=== PATIENT | female | born 1945 | race Caucasian/White ===

== ENCOUNTER → 2016-10-01 | Outpatient (CLI) | payer MEDICARE, BC ==
[~2016-10-01] MED LIST: CELEXA 20MG20 MG/TA1 PO; HYDROCHLOROTH12.5 M1 PO; ONDANSETRON HYDR4 M1 PO; PEPCID 20MG TAB20 MG PO; PRINIVIL10 M1 PO; VERAPAMIL240 MG/TAB PO
[2016-10-01 17:25] VITALS: BP 134/50
== END ==
LOC: AMSURD 16:38
DX: R11.2 Nausea with vomiting, unspecified (principal); R53.81 Other malaise; R10.13 Epigastric pain
CPT/HCPCS: J2405; J7030

== ENCOUNTER → 2018-02-13 | Outpatient (CLI) | payer MEDICARE, BC ==
[~2018-02-13] VITALS: Ht 157.5 cm; Wt 84.1 kg
[~2018-02-13] MED LIST changes: +AMBIEN10 MG PO; +ASPIRIN E.C. 8181 MG PO
[2018-02-13 10:17] LABS: EOS # 0.2 (0.04-0.40); EOS % 3.3 % (1.0-5.0); HEMATOCRIT 41.1 % (37.0-47.0); HEMOGLOBIN 13.5 g/dL (12.5-16.0); LYMPH# 2.1 (1.50-4.00); MEAN CELL VOLUME 92 fl (78-100); MEAN CORPUSCULAR HEMOGLOBIN 30 pg (27-31); MEAN CORPUSCULAR HGB CONC 33 g/dL (33-37); MEAN PLATELET VOLUME 9.7 fl (7.4-10.4); MONO # 0.5 (0.20-0.80); NEU # 3.1 (1.40-6.50); PLATELET COUNT 268 K/mm3 (130-400); RED BLOOD COUNT 4.47 M/mm3 (4.10-5.30); RED CELL DISTRIBUTION WIDTH 13.7 % (11.5-14.5)
[2018-02-13 10:42] VITALS: BP 151/85
[2018-02-13 11:24] LABS: ERYTHROCYTE SEDIMENTATION RATE 25 mm/hr (0-30)
[2018-02-13 11:36] LABS: ALBUMIN 4.1 g/dL (3.5-5.0); CALCIUM 8.8 mg/dL (8.4-10.2); POTASSIUM 4.3 mmol/L (3.6-5.0); TOTAL BILIRUBIN 0.5 mg/dL (0.2-1.3); TOTAL PROTEIN 7.4 g/dL (6.3-8.2)
[2018-02-13 12:13] LABS: URINE APPEARANCE CLEAR; URINE BILIRUBIN NEGATIVE (NEGATIVE); URINE BLOOD NEGATIVE (NEGATIVE); URINE COLOR YELLOW; URINE GLUCOSE NEGATIVE (NEGATIVE); URINE KETONE NEGATIVE (NEGATIVE); URINE LEUKOCYTE ESTERASE NEGATIVE (NEGATIVE); URINE NITRATE NEGATIVE (NEGATIVE); URINE PROTEIN(semi-quant) NEGATIVE (NEGATIVE); URINE UROBILINOGEN NORMAL (NORMAL)
[2018-02-13 12:14] LABS: URINE MUCUS PRESENT (NOT PRESENT)
== END ==
LOC: AMSURD 09:47
PROVIDERS: Internal Medicine
DX: Z12.11 Encounter for screening for malignant neoplasm of colon (principal); I10 Essential (primary) hypertension; R73.02 Impaired glucose tolerance (oral); E78.2 Mixed hyperlipidemia; M85.80 Other specified disorders of bone density and structure, unspecified site

== ENCOUNTER → 2018-06-19 | Outpatient (CLI) | payer MEDICARE, BC ==
[2018-02-13 10:42] VITALS: BP 151/85
== END ==
LOC: RAD 16:36
DX: S62.515A Nondisplaced fracture of proximal phalanx of left thumb, initial encounter for closed fracture (principal); M25.742 Osteophyte, left hand

== ENCOUNTER → 2018-06-25 | Outpatient (CLI) | payer MEDICARE, BC ==
[2018-02-13 10:42] VITALS: BP 151/85
== END ==
LOC: VAS 16:44 → RAD 16:45
DX: I08.1 Rheumatic disorders of both mitral and tricuspid valves (principal)

== ENCOUNTER → 2018-06-26 | Outpatient (CLI) | payer MEDICARE, BC ==
[2018-02-13 10:42] VITALS: BP 151/85
== END ==
LOC: CARDLAB 07:28 → CARDREHAB 07:49 → CARDLAB 09:23
DX: R06.02 Shortness of breath (principal); Z86.79 Personal history of other diseases of the circulatory system; Z82.49 Family history of ischemic heart disease and other diseases of the circulatory system
CPT/HCPCS: A9500

== ENCOUNTER → 2018-07-10 | Outpatient (CLI) | payer MEDICARE, BC ==
[2018-02-13 10:42] VITALS: BP 151/85
== END ==
LOC: LAB 16:34
DX: R20.2 Paresthesia of skin (principal)

== ENCOUNTER 2018-08-21 10:00 | Outpatient (RCR) | payer OTHER ==
[2018-02-13 10:42] VITALS: BP 151/85
== END 2018-08-21 10:30 | disposition still patient (30) ==
LOC: OT 10:00
DX: S62.525D Nondisplaced fracture of distal phalanx of left thumb, subsequent encounter for fracture with routine healing (principal)

== ENCOUNTER → 2018-08-26 | Outpatient (CLI) | payer OTHER ==
[2018-02-13 10:42] VITALS: BP 151/85
== END ==
LOC: RAD 08:35
DX: S62.502D Fracture of unspecified phalanx of left thumb, subsequent encounter for fracture with routine healing (principal)

== ENCOUNTER → 2019-12-07 | Outpatient (CLI) | payer MEDICARE, BC ==
[2018-02-13 10:42] VITALS: BP 151/85
[2019-12-07 11:37] LABS: EOS # 0.4 (0.04-0.40); EOS % 7.5 % (1.0-5.0); HEMATOCRIT 40.4 % (37.0-47.0); HEMOGLOBIN 13.1 g/dL (12.5-16.0); MEAN CELL VOLUME 94 fl (78-100); MEAN CORPUSCULAR HEMOGLOBIN 30 pg (27-31); MEAN CORPUSCULAR HGB CONC 32 g/dL (33-37); MEAN PLATELET VOLUME 9.9 fl (7.4-10.4); MONO # 0.5 (0.20-0.80); NEU # 2.1 (1.40-6.50); PLATELET COUNT 251 K/mm3 (130-400); RED BLOOD COUNT 4.32 M/mm3 (4.10-5.30); RED CELL DISTRIBUTION WIDTH 13.4 % (11.5-14.5); WHITE BLOOD COUNT 5.1 K/mm3 (4.8-10.8)
[2019-12-07 11:41] LABS: POTASSIUM 4.3 mmol/L (3.5-5.1)
[2019-12-07 11:42] LABS: ALBUMIN 3.8 g/dL (3.4-4.8)
[2019-12-07 11:43] LABS: CALCIUM 8.7 mg/dL (8.3-10.5)
[2019-12-07 11:44] LABS: TOTAL PROTEIN 6.7 g/dL (6.2-8.1)
[2019-12-07 11:46] LABS: TOTAL BILIRUBIN 0.5 mg/dL (0.2-1.2)
[2019-12-07 12:56] LABS: URINE APPEARANCE CLEAR; URINE BILIRUBIN NEGATIVE (NEGATIVE); URINE BLOOD NEGATIVE (NEGATIVE); URINE COLOR YELLOW; URINE GLUCOSE NEGATIVE (NEGATIVE); URINE KETONE NEGATIVE (NEGATIVE); URINE LEUKOCYTE ESTERASE NEGATIVE (NEGATIVE); URINE NITRATE NEGATIVE (NEGATIVE); URINE PROTEIN(semi-quant) NEGATIVE (NEGATIVE); URINE UROBILINOGEN NORMAL (NORMAL)
[2019-12-07 15:33] LABS: ERYTHROCYTE SEDIMENTATION RATE 27 mm/hr (0-30)
== END ==
LOC: RAD 10:46 → LAB 10:46
PROVIDERS: Internal Medicine
DX: Z12.11 Encounter for screening for malignant neoplasm of colon (principal); I10 Essential (primary) hypertension; E74.39 Other disorders of intestinal carbohydrate absorption; E78.2 Mixed hyperlipidemia; M85.80 Other specified disorders of bone density and structure, unspecified site; M79.672 Pain in left foot

== ENCOUNTER → 2019-12-13 | Outpatient (CLI) | payer MEDICARE, BC ==
[2018-02-13 10:42] VITALS: BP 151/85
== END ==
LOC: LAB 11:05
DX: Z12.11 Encounter for screening for malignant neoplasm of colon (principal); I10 Essential (primary) hypertension

== ENCOUNTER → 2021-03-08 | Outpatient (CLI) | payer MEDICARE, BC ==
[2021-03-08 10:05] LABS: BASO # 0.01 (0.02-0.10); EOS # 0.18 (0.04-0.40); EOS % 3.6 % (1.0-5.0); HEMATOCRIT 41.7 % (37.0-47.0); HEMOGLOBIN 13.7 g/dL (12.5-16.0); LYMPH# 1.87 (1.50-4.00); MEAN CELL VOLUME 93 fl (78-100); MEAN CORPUSCULAR HEMOGLOBIN 31 pg (27-31); MEAN CORPUSCULAR HGB CONC 33 g/dL (33-37); MEAN PLATELET VOLUME 9.4 fl (7.4-10.4); MONO # 0.44 (0.20-0.80); PLATELET COUNT 250 K/mm3 (130-400); RED BLOOD COUNT 4.47 M/mm3 (4.10-5.30)
[2021-03-08 10:09] LABS: ALBUMIN 3.8 g/dL (3.4-4.8); POTASSIUM 4.7 mmol/L (3.5-5.1)
[2021-03-08 10:10] LABS: CALCIUM 9.5 mg/dL (8.3-10.5)
[2021-03-08 10:12] LABS: TOTAL PROTEIN 6.9 g/dL (6.2-8.1)
[2021-03-08 10:13] LABS: TOTAL BILIRUBIN 0.4 mg/dL (0.2-1.2)
[2021-03-08 11:37] LABS: ERYTHROCYTE SEDIMENTATION RATE 9 mm/hr (0-30)
== END ==
LOC: LAB 09:16
PROVIDERS: Internal Medicine
DX: Z12.11 Encounter for screening for malignant neoplasm of colon (principal); I10 Essential (primary) hypertension; K90.9 Intestinal malabsorption, unspecified; E78.2 Mixed hyperlipidemia

== ENCOUNTER → 2021-03-27 | Outpatient (CLI) | payer MEDICARE, BC | LOC: MAMMO 10:00 | DX: Z12.31 Encounter for screening mammogram for malignant neoplasm of breast (principal) ==

== ENCOUNTER → 2022-02-16 | Outpatient (CLI) | payer MEDICARE, BC ==
[2022-02-16 16:35] LABS: CALCIUM 8.9 mg/dL (8.3-10.5)
[2022-02-16 16:59] LABS: URINE APPEARANCE CLEAR; URINE BILIRUBIN NEGATIVE (NEGATIVE); URINE BLOOD NEGATIVE (NEGATIVE); URINE COLOR YELLOW; URINE GLUCOSE NEGATIVE (NEGATIVE); URINE KETONE NEGATIVE (NEGATIVE); URINE LEUKOCYTE ESTERASE NEGATIVE (NEGATIVE); URINE NITRATE NEGATIVE (NEGATIVE); URINE PROTEIN(semi-quant) NEGATIVE (NEGATIVE); URINE UROBILINOGEN 1 mg/dL (NORMAL); URINE WBC 0-1 /hpf (0-3)
== END ==
LOC: LAB 16:04
PROVIDERS: Nurse Practitioner Family
DX: U07.1 COVID-19 (principal)

== ENCOUNTER → 2022-05-07 | Outpatient (CLI) | payer MEDICARE, BC | LOC: MAMMO 04-24 09:15 | DX: Z12.31 Encounter for screening mammogram for malignant neoplasm of breast (principal) ==

== ENCOUNTER → 2022-05-30 | Outpatient (CLI) | payer MEDICARE, BC | LOC: RAD 16:58 | DX: M25.812 Other specified joint disorders, left shoulder (principal) ==

== ENCOUNTER → 2024-02-03 | Outpatient (CLI) | payer MEDICARE, BC ==
[2024-02-03 18:24] LABS: BASO # 0.01 K/mm3 (0.02-0.10); EOS # 0.18 K/mm3 (0.04-0.40); EOS % 2.7 % (1.0-5.0); HEMATOCRIT 39.1 % (37.0-47.0); HEMOGLOBIN 12.7 g/dL (12.5-16.0); LYMPH# 2.48 K/mm3 (1.50-4.00); MEAN CELL VOLUME 93 fl (78-100); MEAN CORPUSCULAR HEMOGLOBIN 30 pg (27-31); MEAN CORPUSCULAR HGB CONC 33 g/dL (33-37); MEAN PLATELET VOLUME 9.2 fl (7.4-10.4); MONO # 0.56 K/mm3 (0.20-0.80); NEU # 3.37 K/mm3 (1.40-6.50); PLATELET COUNT 249 K/mm3 (130-400); RED BLOOD COUNT 4.19 M/mm3 (4.10-5.30); RED CELL DISTRIBUTION WIDTH 13.3 % (11.5-14.5); WHITE BLOOD COUNT 6.6 K/mm3 (4.8-10.8)
[2024-02-03 18:34] LABS: CALCIUM 9.3 mg/dL (8.3-10.5)
[2024-02-03 18:35] LABS: TOTAL PROTEIN 6.4 g/dL (6.2-8.1)
[2024-02-03 18:37] LABS: TOTAL BILIRUBIN 0.4 mg/dL (0.2-1.2)
== END ==
LOC: LAB 18:02
PROVIDERS: Nurse Practitioner Family
DX: R60.0 Localized edema (principal)

== ENCOUNTER → 2024-05-10 | Outpatient (CLI) | payer MEDICARE, BC | LOC: MAMMO 08:27 | DX: Z12.31 Encounter for screening mammogram for malignant neoplasm of breast (principal) ==

== ENCOUNTER 2024-10-03 14:02 | Emergency (ER) | payer MEDICARE, BC ==
[~2024-10-03] VITALS: Ht 154.9 cm; Wt 81.8 kg
[2024-10-03] MEDS ORDERED: ONDANSETRON ODT8 MG PO (14:15)
[2024-10-03] MEDS ORDERED: AMLODIPINE BESYL5 MG PO (14:15)
[2024-10-03] MEDS ORDERED: NS 1,000 ML IV SCH (14:15)
[2024-10-03] MEDS ORDERED: ROSUVASTATIN CA20 MG PO (14:15)
[2024-10-03] MEDS ORDERED: Ondansetron 4 MG/2 ML VIAL IV ONE (14:15)
[2024-10-03] MEDS ORDERED: Ketorolac 30 MG/ML VIAL IV ONE (14:30)
[2024-10-03 14:36] LABS: BASO # 0.01 K/mm3 (0.02-0.10); EOS # 0.17 K/mm3 (0.04-0.40); HEMATOCRIT 39.9 % (37.0-47.0); HEMOGLOBIN 13.6 g/dL (12.5-16.0); LYMPH# 2.16 K/mm3 (1.50-4.00); MEAN CELL VOLUME 93 fl (78-100); MEAN CORPUSCULAR HEMOGLOBIN 32 pg (27-31); MEAN CORPUSCULAR HGB CONC 34 g/dL (33-37); MEAN PLATELET VOLUME 9.2 fl (7.4-10.4); MONO # 0.41 K/mm3 (0.20-0.80); NEU # 2.99 K/mm3 (1.40-6.50); PLATELET COUNT 242 K/mm3 (130-400); RED BLOOD COUNT 4.29 M/mm3 (4.10-5.30); WHITE BLOOD COUNT 5.8 K/mm3 (4.8-10.8)
[2024-10-03 14:43] LABS: ALBUMIN 4.3 g/dL (3.4-4.8)
[2024-10-03 14:44] LABS: CALCIUM 9.2 mg/dL (8.3-10.5)
[2024-10-03 14:45] LABS: TOTAL PROTEIN 7.5 g/dL (6.2-8.1)
[2024-10-03 14:47] LABS: TOTAL BILIRUBIN 0.5 mg/dL (0.2-1.2)
[2024-10-03] MEDS ORDERED: Meclizine 12.5 MG TAB PO ONE (15:15)
[2024-10-03] MEDS ORDERED: ANTIVERT12.5 M1 PO (15:41)
[2024-10-03 16:02] VITALS: BP 145/63
== END 2024-10-03 16:05 | disposition home or self-care (01) ==
LOC: ED 14:02
PROVIDERS: Physician Assistant
DX: G43.909 Migraine, unspecified, not intractable, without status migrainosus (principal); R42 Dizziness and giddiness; Z79.82 Long term (current) use of aspirin
CPT/HCPCS: J1885; J2405; J7030